=== PATIENT | male | born 1980 | race Caucasian/White ===

== ENCOUNTER 2021-04-28 09:23 | Outpatient (CLI) | payer OTHER, SELFPAY ==
--- NOTE | 2021-04-28 12:18 | WPDPFTINT ---
PFT Procedure Performed PFT Procedure Performed Spirometry with Pre/Post Bronchodilator Plethysmography (Lung Vol) Diffusing Cap (DLCO) Flow Vol Loop PFT Interpretation This is a pulmonary function test with pre and post-bronchodilator spirometry, plethysmography and diffusing capacity. The test was performed and results interpreted in accordance with the 2019 and 2005 ATS/ERS Task Force guidelines respectively using the Global Lung Function Initiative-2012 reference equations. Patient demonstrated good effort and cooperation. Reproducibility criteria were met. The quality of the pre bronchodilator spirometry maneuver was Grade A and post bronchodilator spirometry maneuver was Grade A. Findings: Spirometry: The contour the inspiratory and expiratory flow tracing are normal. The pre bronchodilator FVC is 5.79 L, 115% predicted. The pre bronchodilator FEV1 is 4.44 L, 109% predicted. The FEV1: FVC ratio 77%. The post bronchodilator FVC is 5.60 L, representing a 3% decrease. The post bronchodilator FEV1 is 4.49 L, representing 1% increase. The post bronchodilator FEV1: FVC ratio was 80%. Plethysmography: The total lung capacity is 7.15 L, 107% predicted. The functional residual capacity is 3.11 L, 93% predicted. The residual volume is 1.36 L, 77% predicted. Diffusing capacity: The absolute diffusion capacity unadjusted for hemoglobin is 36.2, 111% predicted. The diffusing capacity adjusted for alveolar volume is 5.38, 109 % predicted. Impression: The spirometry is normal without evidence of an obstructive abnormality. There is no significant improvement after inhaling a single dose of albuterol. The lung volumes are normal. The diffusing capacity is normal. There are no prior studies for comparison
== END 2021-04-28 09:24 | disposition home or self-care (01) ==
PROVIDERS: Visit Provider Nurse Practitioner
DX: R06.09 Other forms of dyspnea (principal); Z86.16 Personal history of COVID-19
CPT/HCPCS: 94060; 94726; 94729